=== PATIENT | male | born 1960 ===

== ENCOUNTER 2024-01-10 13:50 | Emergency (ER) | payer OTHER ==
[~2024-01-10 13:50] MED LIST: 0.9% SODIUM CHLORIDE 1,000 ML BAG ONE; 0.9% SODIUM CHLORIDE 10 ML SYRINGE IVP ONE; ATROPINE SULFATE 0.1 MG/ML 10 ML SYRINGE IVP ONE; EPINEPHrine 1:10,000 [1 MG/10 ML] SYRINGE ONE; SODIUM BICARBONATE [ADULT] 8.4% 50 MEQ/50 ML SYRINGE IVP ONE
[2024-01-10 15:53] LABS: BASOPHILS % (AUTO) 0.3 % (0.0-2.0); EOSINOPHILS % (AUTO) 0.6 % (1.0-6.0); HEMATOCRIT 44.2 % (41-53); HEMOGLOBIN 14.1 g/dL (13.5-17.5); LYMPHOCYTES # (AUTO) 9.5 K/uL (1.0-4.8); LYMPHOCYTES % (AUTO) 74.8 % (22.0-44.0); MEAN CORPUSCULAR HEMOGLOBIN 30.7 pg (26.0-34.0); MEAN CORPUSCULAR HGB CONC 31.9 G/dL (31.0-37.0); MEAN CORPUSCULAR VOLUME 96 fL (80-100); MONOCYTES % (AUTO) 7.9 % (2.0-9.0); NEUTROPHILS # (AUTO) 2.1 K/uL (1.8-7.7); NEUTROPHILS % (AUTO) 16.4 % (40.0-70.0); PLATELET COUNT (AUTO) 160 K/uL (150-450); RED BLOOD CELL COUNT(AUTO) 4.58 MIL/uL (4.50-5.90); RED CELL DISTRIBUTION WIDTH 14.1 % (11.5-14.5); WHITE BLOOD COUNT (AUTO) 12.7 K/uL (4.5-11.0)
[2024-01-10 16:12] LABS: B-TYPE NATRIURETIC PEPTIDE 15 pg/mL (0-100)
[2024-01-10 16:30] LABS: TROPONIN I-HIGH SENSITIVITY 12 ng/L (<76)
[2024-01-10 16:41] LABS: CARBON DIOXIDE 21 mmol/L (22-29); CHLORIDE 112 mmol/L (98-107); POTASSIUM 3.7 mmol/L (3.5-5.1); SODIUM SERUM 150 mmol/L (136-145)
[2024-01-10 16:42] LABS: ANION GAP 17 mmol/L (8-16); CALCIUM, TOTAL 8.5 mg/dL (8.8-10.5); CREATININE 1.13 mg/dL (0.60-1.30); GLOMERULAR FILTR. RATE CALC > 60 mL/min (>60); GLUCOSE,RANDOM 81 mg/dL (70-110); UREA NITROGEN, BLOOD 11 mg/dL (7-18)
[2024-01-10 17:06] LABS: ALANINE AMINOTRANSFERASE 120 U/L (12-78); ALBUMIN 3.1 g/dL (3.4-5.0); ALKALINE PHOSPHATASE 53 U/L (46-116); ASPARTATE AMINOTRANSFERASE 64 U/L (15-37); BILIRUBIN,TOTAL 0.3 mg/dL (0.1-1.0); CREATINE KINASE, TOTAL ONLY 110 U/L (39-308); TOTAL PROTEIN, SERUM 6.3 g/dL (6.4-8.2)
== END 2024-01-10 17:46 ==
LOC: EMS 13:50
DX: I46.9 Cardiac arrest, cause unspecified (principal)
CPT/HCPCS: 80053; 82550; 83880; 84484; 85025; 36415; 92950; 31500; 99291; J0461; J0171; J3490; J7030; X7700